=== PATIENT | female | born 1975 | race Caucasian/White ===

== ENCOUNTER 2017-11-10 14:48 | Emergency (ER) | payer OTHER ==
[~2017-11-10] VITALS: Ht 162.6 cm; Wt 81.7 kg
[~2017-11-10 14:48] MED LIST: ALBUTEROL SULF8.5 GM INH; ALBUTEROL2.5 MG/3 M INH; ALLER-TEC10 MG PO; CYCLOBENZAPRINE10 MG PO; FISH OIL 1,0001 EAC1 PO; FLONASE ALLERG9.9 ML NS; LORATADINE10 MG PO; MULTI VITAMIN1 EACH PO; OMEPRAZOLE20 MG PO; PREDNISONE20 MG PO; PROPRANOLOL HCL20 MG PO; PROVENTIL HFA6.7 GM INH; ZITHROMAX250 MG PO
[2017-11-10] MEDS ORDERED: CLARITIN10 MG PO (15:05)
--- OUTSIDE RECORDS SUMMARY | 2017-11-10 15:08 | XMS | Clinical Summary ---
Demographics + + + | Address | [address] | | | [place] [address] | + + + | Home Phone | | + + + | Preferred Language | Unknown | + + + | Marital Status | | + + + | Methodist Affiliation | Unknown | + + + | Race | Unknown | + + + | Ethnic Group | Unknown | + + + Author + + + | Author | [facility] | | | and Ritoana | + + + | Organization | [facility] | | | and Ritoana | + + + | Address | Unknown | + + + | Phone | Unavailable | + + + Support + + +---------+ + | Name | Relationship | Address | Phone | + + +---------+ + | Jaun Russo | ECON | Unknown | | + + +---------+ + Care Team Providers + +------+ + | Care Rn Testing Name | Role | Phone | + +------+ + | Yaquelin Hameed PA-C | PP | | + +------+ + Allergies + + + + + + | Active Allergy | Reactions | Severity | Noted | Comments | | | | | Date | | + + + + + + | Amoxicillin | | | | | + + + + + + | Morphine | | | 20 | | | | | | 12 | | + + + + + + | Sulfa Antibiotics | | | | | + + + + + + Current Medications + +------+-------+---------+------+------+-------+ | Prescription | Sig. | Disp. | Refills | Star | End | Statu | | | | | | t | Date | s | | | | | | Date | | | + +------+-------+---------+------+------+-------+ | ibuprofen ([facility] | | | | 07/2 | | Activ | | IBUPROFEN) 200 mg | | | | 0/20 | | e | | tablet | | | | 12 | | | + +------+-------+---------+------+------+-------+ | PROPRANOLOL HCL | | | | 07/2 | | Activ | | | | | | 0/20 | | e | | | | | | 12 | | | + +------+-------+---------+------+------+-------+ | [place]-3 Fatty | | | | 08/ | | Activ | | Acids ([facility] NATURAL | | | | 01/11 | | e | | FISH OIL) 1000 MG | | | | 12 | | | | CAPS | | | | | | | + +------+-------+---------+------+------+-------+ Active Problems + + + | Problem | Noted Date | + + + | CARPAL TUNNEL SYNDROME, BILATERAL | 03/10/2012 | + + + | CERVICALGIA | | + + + | SHOULDER PAIN | | + + + | DISTURBANCE OF SKIN SENSATION | | + + + | DEGENERATIVE DISC DISEASE, CERVICAL SPINE | | + + + Social History + +-------+ +--------+------+ | Tobacco Use | Types | Packs/Day | Years | Date | | | | | Used | | + +-------+ +--------+------+ | Never Assessed | | | | | + +-------+ +--------+------+ + + + | Sex Assigned at | Date Recorded | | | | + + + | Not on file | | + + + Last Filed Vital Signs + + + + | Vital Sign | Reading | Time Taken | + + + + | Blood Pressure | 120/82 | 03/09/2012 0000 PDT | + + + + | Pulse | - | - | + + + + | Temperature | - | - | + + + + | Respiratory Rate | - | - | + + + + | Oxygen Saturation | - | - | + + + + | Inhaled Oxygen | - | - | | Concentration | | | + + + + | Weight | 81.6 kg (180 lb) | 03/09/2012 0000 PDT | + + + + | Height | 165.1 cm (5' 5") | 02/11/2012 0000 PDT | + + + + | Body Mass Index | 29.95 | 03/09/2012 PDT | + + + + Plan of Treatment + + + + + | Health Maintenance | Due Date | Last Done | Comments | + + + + + | Vaccine: | | | | | Dtap/Tdap/Td (1 - | 4 | | | | Tdap) | | | | + + + + + | CERVICAL CANCER | | | | | SCREENING (PAP EVERY | 6 | | | | 3 YEARS 21-64 ) | | | | + + + + + | Vaccine: Influenza | | | | | (Season Ended) | 8 | | | + + + + + Results Not on filefrom Last 3 Months Insurance + +--------+ +--------+ +---------+ | Payer | Benefi | Subscriber | Type | Phone | Address | | | t Plan | ID | | | | | | / | | | | | | | Group | | | | | + +--------+ +--------+ +---------+ | [employer] | [employer] | [id number] | Medica | +- | | | MEDICAID HMO | HEALTH | | id | [id number] | | | | [place] | | | | | | | [place] | | | | | + +--------+ +--------+ +---------+ + +--------+ +--------+ + + | Guarantor Name | Accoun | Relation to | Date | Phone | Billing Address | | | t Type | Patient | of | | | | | | | | | | + +--------+ +--------+ + + | GEOVANNI RUSSO | Person | Self [birth year] Home: | [address] | | | [place] | | 1975 | [phone] | [place] | | | [place] | | | [phone] | + +--------+ +--------+ + +
--- OUTSIDE RECORDS SUMMARY | 2017-11-10 15:08 | XMS | Clinical Summary ---
Demographics + + + | Address | [address] | | | [place] [address] | + + + | Home Phone | | + + + | Preferred Language | Unknown | + + + | Marital Status | Unknown | + + + | Pentecostalism Affiliation | Unknown | + + + | Race | Unknown | + + + | Ethnic Group | Unknown | + + + Author + + + | Author | [facility] | + + + | Organization | [facility] | + + + | Address | Unknown | + + + | Phone | Unavailable | + + + Care Team Providers + +------+ + | Care Office Administration Instructor Name | Role | Phone | + +------+ + PP | Unavailable | + +------+ + Allergies Not on File Current Medications Not on file Active Problems Not on file Social History + +-------+ +--------+------+ | Tobacco [...] on file | | + + + Plan of Treatment Not on file Results Not on filefrom Last 3 Months"
--- OUTSIDE RECORDS SUMMARY | 2017-11-10 15:08 | XMS | Clinical Summary ---
Demographics + + + | Address | [address] | | | [place] [address] | + + + | Home Phone | | + + + | Preferred Language | Unknown | + + + | Marital Status | Unknown | + + + | Mandaen Affiliation | Unknown | + + + | Race | Unknown | + + + | Ethnic Group | Unknown | + + + Author + + + | Author | [facility] | + + + | Organization | [facility] | + + + | Address | Unknown | + + + | Phone | Unavailable | + + + Care Team Providers + +------+ + | Care Gardening Supervisor Name | Role | Phone | + [...]
--- OUTSIDE RECORDS SUMMARY | 2017-11-10 15:08 | XMS | Clinical Summary ---
Demographics + + + | Address | [address] | | | [place] [address] | + + + | Home Phone | | + + + | Preferred Language | Unknown | + + + | Marital Status | | + + + | Gnosticist Affiliation | Unknown | + + + | Race | Unknown | + + + | Ethnic Group | Unknown | + + + Author + + + | Author | [facility] | | | and Ritoana | + + + | Organization | [facility] | | | and Ritoana | [...] Team Providers + +------+ + | Care Vp Director Of Finance Name | Role | Phone | + [...] 12 | | | + +------+-------+---------+------+------+-------+ | [place]-3 Fatty | | | | 08/ | [...] | Self | [birth year] | Home: | [address] | | | [place] | | 1975 | [phone] | [place] | | | [place] | | | [phone] | [phone] | + +--------+ +--------+ + +
[2017-11-10] MEDS ORDERED: IBUPROFEN600 MG PO (15:44)
== END 2017-11-10 16:00 | disposition home or self-care (01) ==
LOC: ED 14:48
DX: S93.601A Unspecified sprain of right foot, initial encounter (principal); X50.9XXA Other and unspecified overexertion or strenuous movements or postures, initial encounter; I10 Essential (primary) hypertension; F17.200 Nicotine dependence, unspecified, uncomplicated; Z88.2 Allergy status to sulfonamides; Z88.0 Allergy status to penicillin; Z88.5 Allergy status to narcotic agent; Z79.899 Other long term (current) drug therapy
CPT/HCPCS: 73630; 99283

== ENCOUNTER 2018-07-22 18:10 | Emergency (ER) | payer OTHER ==
[~2018-07-22] VITALS: Ht 162.6 cm; Wt 81.7 kg
[~2018-07-22 18:10] MED LIST changes: +CLARITIN10 MG PO; +IBUPROFEN600 MG PO
--- NOTE | 2018-07-23 06:00 | EKG ---
[facility] [address] [place], [place] [address] Signed Normal sinus rhythm with sinus arrhythmia Nonspecific ST abnormality Abnormal ECG When compared with ECG of 21-AUG-2016 13:29, No significant change was found Confirmed by ALEXYS JOHNSON MD ([id number]) on 07/23/2018 6:00:36 AM Electronically Signed By: ALEXYS JOHNSON MD 07/23/18 0600 PATIENT NAME: GEOVANNI RUSSO Electrocardiogram DATE OF : [birth year] PHYSICIAN: ALEXYS JOHNSON MD REPORT #: [id number] REPORT IS CONFIDENTIAL AND NOT TO BE RELEASED WITHOUT AUTHORIZATION
== END 2018-07-22 22:55 | disposition home or self-care (01) ==
LOC: ED 18:10
DX: M54.2 Cervicalgia (principal); R42 Dizziness and giddiness; I10 Essential (primary) hypertension; F17.200 Nicotine dependence, unspecified, uncomplicated; Z88.2 Allergy status to sulfonamides; Z88.0 Allergy status to penicillin; Z88.5 Allergy status to narcotic agent
CPT/HCPCS: 36415; 71046; 80053; 81001; 84443; 84484; 85025; 86308; 86665; 93005; 93010; 96360; 99285-25; J7030

== ENCOUNTER 2022-07-25 14:39 | Emergency (ER) | payer OTHER ==
[~2022-07-25] VITALS: Ht 162.6 cm; Wt 79.4 kg
[~2022-07-25 14:39] MED LIST changes: +CLARITIN10 M2 PO; +FLONASE ALLERG9.9 ML NAS
[2022-07-25] MEDS ORDERED: FLUOXETINE HCL20 MG PO (14:58)
[2022-07-25] MEDS ORDERED: HYDROXYZINE HCL25 MG PO (16:53)
--- NOTE | 2022-07-26 18:31 | EKG ---
[facility] [address] [place] [address] Signed Normal sinus rhythm Normal ECG When compared with ECG of 22-JUL-2018 19:24, No significant change was found Confirmed by HENRI WINTERS MD ([id number]) on 07/26/2022 6:31:00 PM Electronically Signed By: HENRI WINTERS MD 07/26/221830 PATIENT NAME: GEOVANNI RUSSO FELI Electrocardiogram DATE OF : 73 PHYSICIAN: HENRI WINTERS MD REPORT #: [id number] REPORT IS CONFIDENTIAL AND NOT TO BE RELEASED WITHOUT AUTHORIZATION
== END 2022-07-25 17:08 | disposition home or self-care (01) ==
LOC: ED 14:39
DX: F41.9 Anxiety disorder, unspecified (principal); R07.89 Other chest pain; F17.200 Nicotine dependence, unspecified, uncomplicated; Z88.2 Allergy status to sulfonamides; Z88.0 Allergy status to penicillin; Z88.5 Allergy status to narcotic agent; Z88.1 Allergy status to other antibiotic agents; Z79.899 Other long term (current) drug therapy
CPT/HCPCS: 36415; 71045; 80053; 83735; 84484; 85025; 93005; 93010; 99285-25; A9270; Q0177

== ENCOUNTER 2023-07-17 15:16 | Emergency (ER) | payer OTHER ==
[~2023-07-17] VITALS: Ht 162.6 cm; Wt 85.0 kg
[~2023-07-17 15:16] MED LIST changes: +FLUOXETINE HCL20 MG PO; +HYDROXYZINE HCL25 MG PO
[2023-07-17] MEDS ORDERED: ROSUVASTATIN CA10 MG (15:26)
[2023-07-17] MEDS ORDERED: LIDODERM1 EACH TOP (16:05)
[2023-07-17] MEDS ORDERED: METHOCARBAMOL750 MG PO (16:05)
[2023-07-17 16:16] VITALS: BP 128/78
== END 2023-07-17 16:15 | disposition home or self-care (01) ==
LOC: ED 15:16
DX: M54.50 Low back pain, unspecified (principal); I10 Essential (primary) hypertension; F17.200 Nicotine dependence, unspecified, uncomplicated; Z88.2 Allergy status to sulfonamides; Z88.0 Allergy status to penicillin; Z88.5 Allergy status to narcotic agent; Z79.899 Other long term (current) drug therapy
CPT/HCPCS: 99283; A9270

== ENCOUNTER 2024-09-04 14:34 | Emergency (ER) | payer OTHER ==
[~2024-09-04] VITALS: Ht 162.6 cm; Wt 87.5 kg
[~2024-09-04 14:34] MED LIST changes: +LIDODERM1 EACH TOP; +METHOCARBAMOL750 MG PO; +ROSUVASTATIN CA10 MG
[2024-09-04] MEDS ORDERED: OSTERA TABLET1 EACH PO (14:54)
[2024-09-04] MEDS ORDERED: FISH OIL 1,0001 EAC6 (14:54)
[2024-09-04] MEDS ORDERED: ondansetron HCL 4 MG/2 ML VIAL IV ONE (15:00)
[2024-09-04] MEDS ORDERED: LACTATED RINGER'S 1,000 ML IV ONE (15:00)
[2024-09-04 15:06] LABS: BASOPHILS 0.3 % (0-2); EOSINOPHILS 0.4 % (0-6); HEMATOCRIT 47.2 % (35.0-50.0); HEMOGLOBIN 16.4 g/dL (12.0-18.0); LYMPHOCYTES 2.5 % (24-44); MCH 32.6 (27-36); MCHC 34.8 g/dl (30-36); MCV 93.8 fl (81-99); MONOCYTES 3.4 % (0-12); NEUTROPHILS 93.4 % (39-80); PLATELET COUNT 240 K/uL (140-440); RBC 5.03 M/ul (4.3-5.7); RDW 13.1 (10.5-15.0)
[2024-09-04 15:21] LABS: ALBUMIN/GLOBULIN RATIO 1.05 (1.1-2.4); ANION GAP 13.9 (7-21); BILIRUBIN, TOTAL 0.7 ng/dL (0.2-1.0); CALCIUM 9.7 mg/dL (8.5-10.1); CREATININE, SERUM 0.6 mg/dL (0.55-1.02); MAGNESIUM 1.6 mg/dL (1.8-2.4); POTASSIUM 3.9 mmol/L (3.5-5.1); PROTEIN, TOTAL 7.8 g/dL (6.4-8.2)
[2024-09-04 16:19] LABS: BILIRUBIN, URINE NEGATIVE (negative); BLOOD/HGB, URINE TRACE-I (Negative); KETONE, URINE NEGATIVE (Negative); LEUK ESTERASE, URINE NEGATIVE (negative); NITRITE, URINE NEGATIVE (negative); PH, URINE 5.5 (5-7)
[2024-09-04 16:28] LABS: RED BLOOD CELLS, URINE 0-1 /hpf (0-5); WHITE BLOOD CELLS, URINE 0-1 /HPF (0-5)
[2024-09-04 16:29] LABS: BACTERIA, URINE RARE /hpf (negative); CASTS, URINE NONE SEEN \\lpf; COLLECTION TYPE, URINE CLEAN CATCH; CRYSTALS, URINE NONE SEEN (0-1+); EPITHELIAL CELLS, URINE SQUAMOUS 2+ /lpf (0-1+); REFLEX CULTURE, URINE No (No)
[2024-09-04] MEDS ORDERED: MAGNESIUM SULFATE 2 GM/50 ML BAG IV ONE (16:45)
[2024-09-04] MEDS ORDERED: SODIUM CHLORIDE 0.9% 1,000 ML IV PRN (17:00)
[2024-09-04] MEDS ORDERED: ONDANSETRON ODT4 MG PO (19:17)
[2024-09-04 19:29] VITALS: BP 143/78
== END 2024-09-04 19:30 | disposition home or self-care (01) ==
LOC: ED 14:34
PROVIDERS: Emergency Medicine
DX: R11.2 Nausea with vomiting, unspecified (principal); R19.7 Diarrhea, unspecified; I10 Essential (primary) hypertension; F17.200 Nicotine dependence, unspecified, uncomplicated; Z88.2 Allergy status to sulfonamides; Z88.0 Allergy status to penicillin; Z88.5 Allergy status to narcotic agent; Z79.899 Other long term (current) drug therapy
CPT/HCPCS: 36415; 80053; 81001; 83735; 85025; 96361; 96365; 96375; 99284-25; J2405; J3475; J7030; J7121

== ENCOUNTER 2024-10-01 10:01 | Emergency (ER) | payer OTHER ==
[~2024-10-01] VITALS: Ht 162.6 cm; Wt 87.8 kg
[~2024-10-01 10:01] MED LIST changes: +FISH OIL 1,0001 EAC6; +ONDANSETRON ODT4 MG PO; +OSTERA TABLET1 EACH PO
--- OUTSIDE RECORDS SUMMARY | 2024-10-01 10:08 | XMS ---
PreManage Notification: GEOVANNI RUSSO Security Heel Sewer Events No recent Security Events currently on file CRITERIA MET - [facility] - 2 Visits in 30 Days CARE PROVIDERS JACKELINE NAIDU [facility] 07/26/2018-Current PHONE: Unknown -, [facility] Dentist: Program Evaluation Consultant [facility], [place] PHONE: [phone] -[place]- Dentist: Program Evaluation Consultant [facility] PHONE: [phone] DR[facility] JACKELINE [facility]: Primary Care MD SHANNAN Mejia \F\ <UNAVAIL> PHONE: [phone] [place] Hameed Physician Assistant Sheba Carroll PA-C PHONE: Unknown Bhupinder has no Care Guidelines for this patient. Ivan VISIT COUNT (12 MO.) 2 EZEQUIEL [facility] TOTAL 2 NOTE: Visits indicate total known visits. ED/UCC VISIT TRACKING (12 MO.) 10/01/2024 10:02 [facility] [place] TYPE: Emergency COMPLAINT: - ANXIETY 09/04/2024 14:35 [facility] [place] TYPE: Emergency COMPLAINT: - VOMITING DIAGNOSES: - Allergy status to narcotic agent - Allergy status to penicillin - Allergy status to sulfonamides - Diarrhea, unspecified - Essential (primary) hypertension - Nausea with vomiting, unspecified - Nicotine dependence, unspecified, uncomplicated - Other mcc (current) drug therapy INPATIENT VISIT TRACKING (12 MO.) No inpatient visits to display in this time frame [email or web address]
[2024-10-01] MEDS ORDERED: ADVIL200 M1 PO (10:19)
[2024-10-01 11:00] LABS: BASOPHILS 0.6 % (0-2); EOSINOPHILS 1.2 % (0-6); HEMATOCRIT 43.4 % (35.0-50.0); LYMPHOCYTES 11.4 % (24-44); MCH 32.6 (27-36); MCHC 34.6 g/dl (30-36); MCV 94.3 fl (81-99); MONOCYTES 7.6 % (0-12); NEUTROPHILS 79.2 % (39-80); PLATELET COUNT 223 K/uL (140-440); RBC 4.61 M/ul (4.3-5.7); RDW 12.9 (10.5-15.0)
[2024-10-01 11:20] LABS: ALBUMIN/GLOBULIN RATIO 1.18 (1.1-2.4); ANION GAP 16.1 (7-21); BILIRUBIN, TOTAL 0.4 mg/dL (0.2-1.0); BUN/CREATININE RATIO 21.53 (6.0-28.6); CALCIUM 9.5 mg/dL (8.5-10.1); CREATININE, SERUM 0.65 mg/dL (0.55-1.02); POTASSIUM 4.1 mmol/L (3.5-5.1); PROTEIN, TOTAL 7.4 g/dL (6.4-8.2)
[2024-10-01 11:36] LABS: BILIRUBIN, URINE NEGATIVE (negative); BLOOD/HGB, URINE TRACE-I (Negative); KETONE, URINE NEGATIVE (Negative); LEUK ESTERASE, URINE NEGATIVE (negative); NITRITE, URINE NEGATIVE (negative)
[2024-10-01 11:41] LABS: EPITHELIAL CELLS, URINE SQUAMOUS 1+ /lpf (0-1+)
[2024-10-01 11:47] LABS: BACTERIA, URINE NONE SEEN /hpf (negative); CASTS, URINE NONE SEEN \\lpf; COLLECTION TYPE, URINE CLEAN CATCH; CRYSTALS, URINE NONE SEEN (0-1+); REFLEX CULTURE, URINE No (No); WHITE BLOOD CELLS, URINE 0-1 /HPF (0-5)
[2024-10-01 12:57] VITALS: BP 141/83
--- NOTE | 2024-10-01 21:16 | EKG ---
[facility] [address] [facility] [place] [address] Signed Normal sinus rhythm Normal ECG When compared with ECG of 25-JUL-2022 14:48, No significant change was found Confirmed by Nubia Mitchell MD () on 10/01/2024 9:16:13 PM Electronically Signed By: NUBIA MITCHELL MD 10/01/24 2116 PATIENT NAME: GEOVANNI RUSSO FELI Electrocardiogram DATE OF : [birth year] PHYSICIAN: NUBIA MITCHELL MD REPORT #: [id number] REPORT IS CONFIDENTIAL AND NOT TO BE RELEASED WITHOUT AUTHORIZATION
== END 2024-10-01 13:00 | disposition home or self-care (01) ==
LOC: ED 10:01
PROVIDERS: Emergency Medicine
DX: R07.89 Other chest pain (principal); I10 Essential (primary) hypertension; F17.200 Nicotine dependence, unspecified, uncomplicated; Z88.2 Allergy status to sulfonamides; Z88.0 Allergy status to penicillin; Z88.5 Allergy status to narcotic agent; Z79.899 Other long term (current) drug therapy
CPT/HCPCS: 36415; 71045; 80053; 81001; 83690; 84484; 85025; 93005; 93010; 99285-25

== ENCOUNTER 2025-02-22 11:53 | Emergency (ER) | payer OTHER ==
[~2025-02-22] VITALS: Ht 162.6 cm; Wt 83.9 kg
[~2025-02-22 11:53] MED LIST changes: +ADVIL200 M1 PO
[2025-02-22] MEDS ORDERED: NITROGLYCERIN 0.4 MG SUBL SL PRN (12:00)
[2025-02-22] MEDS ORDERED: ASPIRIN 81 MG CHEW PO ONE (12:00)
[2025-02-22 12:09] LABS: BASOPHILS 0.8 % (0.1-1.2); EOSINOPHILS 4.0 % (0.7-5.8); LYMPHOCYTES 24.6 % (19.3-51.7); MCH 32.1 PG (25.6-32.2); MCHC 33.8 g/dL (32.2-35.5); MCV 95.0 fL (79.4-94.8); MONOCYTES 7.1 % (4.7-12.5); NEUTROPHILS 63.3 % (34.0-71.1); RBC 4.80 M/uL (3.93-5.22)
[2025-02-22 12:28] LABS: ALT (SGPT) 31.0 U/L (14-59); AST (SGOT) 17.0 U/L (15-37); GLOMERULAR FILTRATION RATE,EST 107.0 mL/min (>60); PROTEIN, TOTAL 8.1 g/dL (6.4-8.2); UREA NITROGEN 15.0 mg/dL (7-18)
[2025-02-22] MEDS ORDERED: KETOROLAC TROMETHAMINE 15 MG/ML VIAL IV ONE (12:30)
[2025-02-22] MEDS ORDERED: SODIUM CHLORIDE 0.9% 1,000 ML IV ONE (12:45)
[2025-02-22] MEDS ORDERED: CEFDINIR300 MG PO (13:15)
[2025-02-22 15:35] VITALS: BP 143/8
--- NOTE | 2025-02-23 10:42 | EKG ---
[facility] [address] [facility] [place] [address] Signed Normal sinus rhythm Nonspecific ST abnormality Abnormal ECG When compared with ECG of 01-Oct-2024 10:45:[address] abnormality is now present Confirmed by Nai Jason MD ([id number]) on 02/23/2025 10:42:14 AM Electronically Signed By: NAI JASON MD 02/23/25 1042 PATIENT NAME: GEOVANNI RUSSO Electrocardiogram DATE OF : [birth year] PHYSICIAN: NAI JASON MD REPORT #: [id number] REPORT IS CONFIDENTIAL AND NOT TO BE RELEASED WITHOUT AUTHORIZATION
== END 2025-02-22 14:11 | disposition home or self-care (01) ==
LOC: ED 11:53
PROVIDERS: Emergency Medicine
DX: R07.89 Other chest pain (principal); I10 Essential (primary) hypertension; F17.200 Nicotine dependence, unspecified, uncomplicated; Z88.2 Allergy status to sulfonamides; Z88.0 Allergy status to penicillin; Z88.5 Allergy status to narcotic agent; Z79.899 Other long term (current) drug therapy
CPT/HCPCS: 36415; 71045; 80053; 83735; 84484; 85025; 93005; 93010; J1885; J7030